=== PATIENT | female | born 1965 | race Hispanic/Latino ===

== ENCOUNTER → 2018-02-10 | Outpatient (CLI) | payer BC ==
--- NOTE | 2018-02-10 11:35 | Diagnostic Imaging Report ---
PROCEDURE:ABDOMINAL ULTRASOUND COMPARISON:None. INDICATIONS:Abdominal pain. TECHNIQUE:Pickett scale color Doppler ultrasound abdomen FINDINGS: Imaged segments of the inferior vena cava and abdominal aorta are of normal caliber. Pancreas is obscured. Right liver span 16 cm. Mildly increased parenchymal echogenicity. Smooth margin. Portal vein diameter 7 mm; normal flow direction. Debris-filled gallbladder. Multiple shadowing echogenic stones, the largest measuring up to 3.6 cm in diameter. Wall thickness 3 mm. No pericholecystic fluid. Common bile duct diameter 3 mm. Right kidney span 10.1 cm. Normal kidney. Left kidney span 9.5 cm. 0.8 cm simple cyst. Otherwise, normal kidney. Splenic length 8.5 cm. No ascites. CONCLUSION: 1. Cholelithiasis and gallbladder sludge without evidence of acute cholecystitis. 2. Hepatic steatosis Dictated by: Kirk Campbell M.D. on 02/10/2018 at 11:37 Electronically approved by: Kirk Campbell M.D. on 02/10/2018 at 11:37
== END ==
LOC: US 09:12
PROVIDERS: ATTEND Surgery
DX: R10.9 Unspecified abdominal pain (principal)
CPT/HCPCS: 76700

== ENCOUNTER → 2018-02-17 | Outpatient (CLI) | payer BC ==
[2018-02-17 17:08] LABS: BASOPHILS # (AUTO) 0.1 (0.0-0.1); BASOPHILS % 0.4 % (0.0-1.0); EOSINOPHILS # (AUTO) 0.4 (0.0-0.4); EOSINOPHILS % 2.8 % (0.0-6.0); HEMATOCRIT 39.4 % (34.2-44.1); HEMOGLOBIN 13.3 g/dL (12.0-16.0); LYMPHOCYTES # (AUTO) 3.4 (1.0-3.2); LYMPHOCYTES % 26.7 % (18.0-39.1); MEAN CORPUSCULAR HEMOGLOBIN 26.6 pg (28-32); MEAN CORPUSCULAR HGB CONC 33.8 g/dL (31-35); MEAN CORPUSCULAR VOLUME 78.8 fL (81-99); MONOCYTES % 7.9 % (4.4-11.3); NEUTROPHILS # (AUTO) 7.9 (2.1-6.9); NEUTROPHILS % 61.8 % (38.7-80.0); PLATELET COUNT 267 x10e3/uL (140-360); RED CELL DISTRIBUTION WIDTH 15.4 % (11.7-14.4)
[2018-02-17 17:09] LABS: BILIRUBIN,URINE NEGATIVE (NEGATIVE); CLARITY,URINE CLEAR (CLEAR); COLOR,URINE YELLOW (YELLOW); KETONES,URINE NEGATIVE (NEGATIVE); LEUKOCYTE ESTERASE ,URINE NEGATIVE (NEGATIVE); NITRITE,URINE NEGATIVE (NEGATIVE); PROTEIN,URINE DIPSTICK NEGATIVE (NEGATIVE); URINE UROBILINOGEN 0.2 mg/dL (0.2 - 1)
[2018-02-17 17:27] LABS: ALANINE AMINOTRANSFERASE 38 IU/L (0-55); ALBUMIN 3.6 g/dL (3.5-5.0); ALBUMIN/GLOBULIN RATIO 0.9 (0.8-2.0); ALKALINE PHOSPHATASE 94 IU/L (40-150); ANION GAP 11.6 mmol/L (8-16); BLOOD UREA NITROGEN 9 mg/dL (7-26); BUN/CREATININE RATIO 13 (6-25); CALCIUM 9.3 mg/dL (8.4-10.2); CARBON DIOXIDE 25 mmol/L (22-29); CHLORIDE 104 mmol/L (98-107); CREATININE, SERUM 0.71 mg/dL (0.57-1.11); EST GLOMERULAR FILTRATION RATE > 60 ML/MIN (60-); GLUCOSE 91 mg/dL (74-118); POTASSIUM 3.6 mmol/L (3.5-5.1); SODIUM 137 mmol/L (136-145)
--- NOTE | 2018-02-17 17:44 | Diagnostic Imaging Report ---
PROCEDURE: Frontal and lateral views of the chest. COMPARISON: None. INDICATIONS: PRE-OPERATION FOR GALLSTONES FINDINGS: Lines/tubes: None. Lungs: The lungs are well inflated and clear. There is no evidence of pneumonia or pulmonary edema. Pleura: There is no pleural effusion or pneumothorax. Heart and mediastinum: The heart and the mediastinum are normal. Bones: No acute bony abnormality. IMPRESSION: 1. No acute cardiopulmonary abnormalities. Tevin Vogt M.D. Dictated by: Tevin Vogt M.D. on 02/17/2018 at 17:46 Electronically approved by: Tevin Vogt M.D. on 02/17/2018 at 17:46
== END ==
LOC: RAD 16:09
PROVIDERS: ATTEND Surgery
DX: K80.20 Calculus of gallbladder without cholecystitis without obstruction (principal)
CPT/HCPCS: 36415; 71046; 80053; 81003; 85025; 93005

== ENCOUNTER → 2018-02-27 | Day surgery (SDC) | payer BC ==
[~2018-02-27] MED LIST: ACETAMINOPHEN 1000 MG/100 ML IV ONE; BUPIVACAINE 0.25%/EPI 30ML SDV INJ ONE; DESFLURANE 240 ML BTL INH ONE; DEXAMETHASONE SOD PHOS INJ 4 MG/ML VIAL ONE; FENTANYL CITRATE/PF 100MCG/2 ML INJ ONE; GLYCOPYRROLATE INJ 1MG/ 5 ML SYR ONE; LIDOCAINE HCL 2% LOCAL INJ 5 ML SDV VIAL INJ ONE; MIDAZOLAM HCL 2 MG/2 ML VIAL ONE; NEOSTIGMINE 5 MG/5ML SYR ONE; OMEPRAZOLE40 MG PO; ONDANSETRON HCL INJ 2 MG/ML VIAL ONE; PROPOFOL IV EMULSION 10 MG/ML 20 ML VIAL ONE; ROCURONIUM BROMIDE 10 MG/ML 5ML VIAL ONE
--- OUTSIDE RECORDS SUMMARY | 2018-02-27 06:15 | XMS REPORT ---
Author Author [facility] Address Unknown Phone Unavailable Care Team Providers [employer] Name Role Phone ORLIN ESTES Unavailable Unavailable Problems This patient has no known problems. Allergies, Adverse Reactions, Alerts This patient has no known allergies or adverse reactions. Medications This patient has no known medications. Results Test Description Test Time Test Comments Text Results Atomic Results Result Comments CHEST 2 VIEWS [place] [address] Patient Name: CHAYA GOOD I MR #: [id number] : 1965 Age/Sex: 52/F Req #: [id number] Adm Physician: Ordered by: ORLIN ESTES MD Report #: [id number] Location: RAD Room/Bed: ___ Procedure: [id number] DX/CHEST 2 VIEWS Exam Date: 02/17/18 Exam Time: 1630 REPORT STATUS: Signed PROCEDURE: Frontal and lateral views of the chest. COMPARISON: None. INDICATIONS: PRE-OPERATION FOR GALLSTONES FINDINGS: Lines/tubes: None. Lungs: The lungs are well inflated and clear. There is no evidence of pneumonia or pulmonary edema. Pleura: There is no pleural effusion or pneumothorax. Heart and mediastinum: The heart and the mediastinum are normal. Bones: No acute bony abnormality. IMPRESSION: 1. No acute cardiopulmonary abnormalities. Karen Vogt M.D. Dictated by: Karen Vogt M.D. on 02/17/2018 at 17:46 Electronically approved by: Karen Vogt M.D. on 02/17/2018 at 17:46 Dictated By: KAREN VOGT MD 45 Transcribed By: CAROLYNN on 02/17/181745 COPY TO: ORLIN ESTES MD US ABDOMEN COMPLETE [place] [address] Patient Name: CHAYA GOOD I MR #: [id number] : 1965 Age/Sex: 52/F Req #: [id number] Adm Physician: Ordered by: ORLIN ESTES MD Report #: [id number] Location: US Room/Bed: __ Procedure: [id number] US/US ABDOMEN COMPLETE Exam Date: 02/10/18 Exam Time: 1038 REPORT STATUS: Signed PROCEDURE: ABDOMINAL ULTRASOUND COMPARISON: None. INDICATIONS: Abdominal pain. TECHNIQUE: Pickett scale color Doppler ultrasound abdomen FINDINGS: Imaged segments of the inferior vena cava and abdominal aorta are of normal caliber. Pancreas is obscured. Right liver span 16 cm. Mildly increased parenchymal echogenicity. Smooth margin. Portal vein diameter 7 mm ; normal flow direction. Debris-filled gallbladder. Multiple shadowing echogenic stones, the largest measuring up to 3.6 cm in diameter. Wall thickness 3 mm. No pericholecystic fluid. Common bile duct diameter 3 mm. Right kidney span 10.1 cm. Normal kidney. Left kidney span 9.5 cm. 0.8 cm simple cyst. Otherwise, normal kidney. Splenic length 8.5 cm. No ascites. CONCLUSION: 1. Cholelithiasis and gallbladder sludge without evidence of acute cholecystitis. 2. Hepatic steatosis Dictated by: Shaheed Campbell M.D. on 02/10/2018 at 11:37 Electronically approved by: Shaheed Campbell M.D. on 02/10/2018 at 11:37 Dictated By: SHAHEED CAMPBELL MD [id number] Transcribed By: CAROLYNN on 02/10/18 1137 COPY TO: ORLIN ESTES MD
--- NOTE | 2018-02-27 09:40 | Operative Report ---
DATE OF PROCEDURE: February 27, 2018 PREOPERATIVE DIAGNOSIS: Cholelithiasis and chronic cholecystitis. POSTOPERATIVE DIAGNOSIS: Cholelithiasis and chronic cholecystitis. PROCEDURE PERFORMED: Laparoscopic cholecystectomy. COVERING MACHINE TENDER: BILLY Lau ESTIMATED BLOOD LOSS: Minimal. DRAINS: None. COMPLICATIONS: None. INDICATIONS AND FINDINGS: The patient is a pleasant 52-year-old female who had been complaining of epigastric fatty food intolerance, as well as spicy food intolerance, and right upper quadrant pain for several years. She was seen by me 2 years ago and advised cholecystectomy. She did not have it at the time for personal reasons. She had on ultrasound that was done recently a large single stone. No ductal dilatation. Liver chemistries were normal. There was no history of jaundice. INTRAOPERATIVE FINDINGS: Cholelithiasis with the gallbladder that had a thickened wall with adhesions of the omentum to the gallbladder all consistent with chronic cholecystitis. There was a large 2+ cm stone in the neck of the gallbladder. There was no ductal dilatation. The cystic duct and common bile duct junction was identified and preserved with preservation of the common bile duct. DESCRIPTION OF PROCEDURE: With the patient laying on the operating table in the supine position and after administration of general anesthesia, she was prepped and draped for laparoscopic cholecystectomy. The procedure was begun by establishing a pneumoperitoneum in the umbilical site after a stab wound was made in that location and the saline drop test. The peritoneum was insufflated to 15 mm of pressure. Then the 10/11 trocar placed in that location. We rotated the patient to the left with the head up, and placed a 10/11 trocar in the subxiphoid port with direct vision of the camera. Then finally 2 lateral working ports 5 mm each in the right midclavicular line and right anterior line. The gallbladder was full of bile and somewhat tense with thickened wall. There were omental adhesions that were lysed. At this point, we started the dissection on the neck of the gallbladder. The first structure that came to view was the cystic artery. It was coursing anterior and lateral to the cystic duct. The cystic duct with artery was clipped 3 times distally, once proximally. Then the cystic duct was identified and dissected at the junction with the common bile duct seen 360 degrees circumferentially. At that point, the cystic duct was clipped distally 3 times and once proximally. The gallbladder was then taken down from the liver bed using electrocautery dissection with the scissors and then detached. The gallbladder was then placed an endobag and removed through the umbilical port. Due to the large size of the stone, we had to enlarge the skin incision. We went ahead and then under direct vision at that point closed the fascia with a 1 single 0 Vicryl stitch. We then reinstituted the pneumoperitoneum, and placed the camera again through that port and inspected the operative field. There was some oozing coming from the gallbladder bed that was cauterized. Then we placed Surgicel. After assuring that hemostasis was adequate, there was no bile leak, no apparent bile injury, we closed the wounds using 0 Vicryl for the umbilical fascia, 3-0 Vicryl for the subcutaneous tissue in that location, as well as the subxiphoid port. The skin of all the port was infiltrated with 0.25% Marcaine with epinephrine as was the umbilical fascia. The skin was closed using amnjit. Sterile dressing was applied. The patient tolerated the procedure well, and was taken to the recovery room in stable condition. The family was informed of the intraoperative findings. Job#: [id number] MARTIN
== END | disposition home or self-care (01) ==
LOC: OR 06:13
PROVIDERS: ATTEND Surgery
CPT/HCPCS: 81025; 88304; C1766; J1100; J2001; J2250; J2405